=== PATIENT | male | born 1955 | race Hispanic/Latino ===

== ENCOUNTER 2017-05-06 06:43 | Emergency (ER) | payer MEDICARE | END 2017-05-06 08:34 | disposition home or self-care (01) | LOC: EDH 06:43 | DX: M79.2 Neuralgia and neuritis, unspecified (principal); F11.20 Opioid dependence, uncomplicated; J45.909 Unspecified asthma, uncomplicated; Z88.6 Allergy status to analgesic agent; Z88.8 Allergy status to other drugs, medicaments and biological substances; Z98.890 Other specified postprocedural states ==

== ENCOUNTER → 2019-12-18 | Outpatient (CLI) | payer OTHER | END | disposition home or self-care (01) | LOC: RAH 12:52 | PROVIDERS: ATTEND Family Medicine | DX: M47.22 Other spondylosis with radiculopathy, cervical region (principal); M48.02 Spinal stenosis, cervical region; M27.40 Unspecified cyst of jaw | CPT/HCPCS: 72141 ==

== ENCOUNTER → 2020-03-11 | Outpatient (CLI) | payer OTHER | END | disposition home or self-care (01) | LOC: RAH 14:47 | PROVIDERS: ATTEND Family Medicine | DX: M87.9 Osteonecrosis, unspecified (principal) | CPT/HCPCS: 73221 ==

== ENCOUNTER 2021-10-18 11:59 | Emergency (ER) | payer OTHER ==
[~2021-10-18] VITALS: Ht 160 cm; Wt 77.1 kg
[2021-10-18 12:22] LABS: BASOPHILS % (AUTO) 0.1 % (0.0-5.0); HEMATOCRIT 43.4 % (42-54); LYMPHOCYTES % (AUTO) 4.9 % (21.0-51.0); MEAN CORPUSCULAR HGB CONC 33.9 g/dL (32.0-36.0); MEAN CORPUSCULAR VOLUME 94.6 fL (79-99); MONOCYTES % (AUTO) 4.4 % (3.0-13.0); NEUTROPHILS % (AUTO) 90.1 % (40.0-77.0); PLATELET COUNT (AUTO) 321 K/uL (130-400); RED BLOOD CELL COUNT(AUTO) 4.59 MIL/uL (4.50-6.20); RED CELL DISTRIBUTION WIDTH 12.2 % (11.0-15.5); WHITE BLOOD COUNT (AUTO) 13.2 K/uL (4.8-10.8)
[2021-10-18 13:17] LABS: CREATININE 1.1 mg/dL (0.5-1.5); POTASSIUM 4.3 mmol/L (3.5-5.1)
[2021-10-18 13:24] LABS: ALBUMIN 4.1 g/dL (3.5-5.0); BILIRUBIN,TOTAL 0.4 mg/dL (0.2-1.0)
[2021-10-18] MEDS ORDERED: ACETAMINOPHEN WITH CODEINE 1 TAB TAB PO ONE (13:30)
[2021-10-18] MEDS ORDERED: ACET-2079 PO (14:20)
[2021-10-18 15:05] VITALS: BP 146/80
== END 2021-10-18 14:58 | disposition home or self-care (01) ==
LOC: EDH 11:59
DX: S22.32XA Fracture of one rib, left side, initial encounter for closed fracture (principal); J45.909 Unspecified asthma, uncomplicated; Z98.890 Other specified postprocedural states; Z88.6 Allergy status to analgesic agent; Z88.8 Allergy status to other drugs, medicaments and biological substances; W22.8XXA Striking against or struck by other objects, initial encounter; Y93.89 Activity, other specified; Y92.89 Other specified places as the place of occurrence of the external cause; Y99.8 Other external cause status
CPT/HCPCS: 36415; 71045; 71250; 80053; 84484; 85025; 93005

== ENCOUNTER 2021-11-29 07:20 | Observation (INO) | payer OTHER ==
[2021-11-23 11:25] LABS: BASOPHILS % (AUTO) 0.7 % (0.0-5.0); EOSINOPHILS % (AUTO) 2.3 % (0.0-8.0); HEMATOCRIT 43.6 % (42-54); LYMPHOCYTES % (AUTO) 15.3 % (21.0-51.0); MEAN CORPUSCULAR HEMOGLOBIN 31.6 pg (27.0-33.0); MEAN CORPUSCULAR HGB CONC 32.8 g/dL (32.0-36.0); MEAN CORPUSCULAR VOLUME 96.5 fL (79-99); MONOCYTES % (AUTO) 11.8 % (3.0-13.0); NEUTROPHILS % (AUTO) 69.5 % (40.0-77.0); PLATELET COUNT (AUTO) 288 K/uL (130-400); RED BLOOD CELL COUNT(AUTO) 4.52 MIL/uL (4.50-6.20); RED CELL DISTRIBUTION WIDTH 12.2 % (11.0-15.5); WHITE BLOOD COUNT (AUTO) 8.3 K/uL (4.8-10.8)
[2021-11-23 11:35] LABS: POTASSIUM 4.4 mmol/L (3.5-5.1)
[2021-11-23 13:01] LABS: INR 0.93 (0.85-1.15); PROTHROMBIN TIME 9.8 SEC (9.6-11.6)
[2021-11-28 11:09] VITALS: BP 130/79
[~2021-11-29] VITALS: Ht 160 cm; Wt 80.7 kg
[2021-11-29] VITALS (22 sets, daily range): BP systolic 118–174; BP diastolic 65–88
[~2021-11-29 07:20] MED LIST: AEC81 PO; ALLO100T PO; BUDE10.2 IH; DICL20GE TP; DONE10TA43 PO; DULO60CA64 PO; HYDR-4068 PO; LACTATED RINGERS 1000ML 1,000 ML IV SCH; MEMA10TA55 PO; ROSU10TA28 PO; TAMS-1 PO; TIOT18CA3 IH; TRANEXAMIC ACID 1000MG/10ML IV SCH
[2021-11-29] MEDS ORDERED: CEFAZOLIN SODIUM 1 GM VIAL ONE (08:34)
[2021-11-29] MEDS: HYDROCODONE/ACETAMINOPHEN 10/325 MG TAB PO SCH (10:37)
[2021-11-29] MEDS ORDERED: HYDROCODONE/ACETAMINOPHEN 10/325 MG TAB ONE (10:40)
[2021-11-29] MEDS ORDERED: TRANEXAMIC ACID 1000MG/10ML ONE (13:50)
[2021-11-29] MEDS ORDERED: LIDOCAINE PF 100MG/5ML (2%) SYRINGE 5ML ONE (13:52)
[2021-11-29] MEDS ORDERED: PROPOFOL 10 MG/ML 20ML VIAL IV ONE (13:53)
[2021-11-29] MEDS ORDERED: MIDAZOLAM HCL 1 MG/ML 2ML VIAL ONE (13:53)
[2021-11-29] MEDS ORDERED: SUCCINYLCHOLINE 200MG/10ML SYR ONE (13:53)
[2021-11-29] MEDS ORDERED: SUCCINYLCHOLINE CHLORIDE 20 MG/ML 10 ML VIAL ONE (13:53)
[2021-11-29] MEDS ORDERED: DEXAMETHASONE SOD PHOSPHATE 10MG/ML 1ML VIAL ONE ×2 (13:53→14:50)
[2021-11-29] MEDS ORDERED: ONDANSETRON 4MG INJ ONE (13:53)
[2021-11-29] MEDS ORDERED: GLYCOPYRROLATE 1 MG/5 ML SYRINGE ONE (13:53)
[2021-11-29] MEDS ORDERED: NEOSTIGMINE 5MG/5ML SYR IV ONE (13:53)
[2021-11-29] MEDS ORDERED: ROCURONIUM 10MG/1ML SYR 10 MG/ML ML ONE ×2 (13:54→15:56)
[2021-11-29] MEDS ORDERED: FENTANYL CITRATE PF 50 MCG/1 ML 2ML VIAL ONE ×2 (13:54→17:47)
[2021-11-29] MEDS ORDERED: ROPIVACAINE 0.5% 5MG/ML 30ML IJ ONE (14:04)
[2021-11-29] MEDS ORDERED: HYDROCODONE/ACETAMINOPHEN 5/325 MG TAB PO PRN (15:30)
[2021-11-29] MEDS ORDERED: ONDANSETRON 4MG INJ IVP PRN (15:30)
[2021-11-29] MEDS ORDERED: PHENYLEPHRINE HCL 10 MG/ML 1ML VIAL IV ONE (15:54)
[2021-11-29] MEDS ORDERED: ALBUTEROL 0.083% 2.5 MG/3 ML INH IH PRN (16:00)
[2021-11-29] MEDS ORDERED: MEPERIDINE-PF 25 MG/ML SYG ONE (17:36)
[2021-11-29] MEDS: DONEPEZIL HCL 5 MG TAB PO SCH (20:58)
[2021-11-29] MEDS: FAMOTIDINE 20MG TAB PO SCH (20:58)
[2021-11-29] MEDS: MEMANTINE HCL 5 MG TABLET PO SCH (20:58)
[2021-11-29] MEDS: ALLOPURINOL 100 MG TABLET PO SCH (20:59)
[2021-11-29] MEDS: ASPIRIN 81 MG EC TAB PO SCH (20:59)
[2021-11-29] MEDS: ACETAMINOPHEN 500 MG TABLET PO SCH (21:04)
[2021-11-29] MEDS: 0.9%NACL 1000ML 1,000 ML IV SCH (21:05)
[2021-11-29] MEDS: CEFAZOLIN SODIUM 1 GM VIAL IVP SCH (21:05)
[2021-11-29] MEDS: MORPHINE 4 MG SYG IVP PRN (21:13)
[2021-11-30] MEDS: HYDROCODONE/ACETAMINOPHEN 10/325 MG TAB PO PRN ×4 (01:14→23:47)
[2021-11-30] MEDS: 0.9%NACL 1000ML 1,000 ML IV SCH ×2 (01:30→18:05)
[2021-11-30] MEDS: BUDESONIDE 0.5 MG/2 ML INH IH SCH ×3 (02:25→17:02)
[2021-11-30] MEDS: CEFAZOLIN SODIUM 1 GM VIAL IVP SCH (04:13)
[2021-11-30] MEDS: ACETAMINOPHEN 500 MG TABLET PO SCH ×4 (04:14→23:48)
[2021-11-30 05:14] VITALS: BP 115/70
[2021-11-30 05:24] LABS: HEMATOCRIT 36.8 % (42-54); MEAN CORPUSCULAR HEMOGLOBIN 31.8 pg (27.0-33.0); MEAN CORPUSCULAR HGB CONC 33.7 g/dL (32.0-36.0); MEAN CORPUSCULAR VOLUME 94.4 fL (79-99); RED BLOOD CELL COUNT(AUTO) 3.9 MIL/uL (4.50-6.20); RED CELL DISTRIBUTION WIDTH 12.3 % (11.0-15.5); WHITE BLOOD COUNT (AUTO) 11.9 K/uL (4.8-10.8)
[2021-11-30 05:30] LABS: CREATININE 1.4 mg/dL (0.5-1.5); POTASSIUM 3.4 mmol/L (3.5-5.1)
[2021-11-30] MEDS ORDERED: IPRATROPIUM 0.5 MG/2.5 ML INH IH ONE (06:34)
[2021-11-30] MEDS: MORPHINE 4 MG SYG IVP PRN ×3 (07:32→20:26)
[2021-11-30 08:00] VITALS: BP 126/79
[2021-11-30] MEDS ORDERED: POLYETHYLENE GLYCOL 3350 17 GM POWD.PACK PO SCH (09:00)
[2021-11-30] MEDS: MEMANTINE HCL 5 MG TABLET PO SCH ×2 (10:11→20:27)
[2021-11-30] MEDS: ASPIRIN 81 MG EC TAB PO SCH ×2 (10:11→20:27)
[2021-11-30] MEDS: FAMOTIDINE 20MG TAB PO SCH ×2 (10:12→20:26)
[2021-11-30] MEDS: DULOXETINE HCL 30 MG CAP PO SCH (10:14)
[2021-11-30] MEDS: TAMSULOSIN HCL 0.4 MG CAP.ER.24H PO SCH (10:14)
[2021-11-30] MEDS: HYDROCODONE/ACETAMINOPHEN 10/325 MG TAB PO SCH (10:37)
[2021-11-30] MEDS: IPRATROPIUM 0.5 MG/2.5 ML INH IH SCH ×2 (11:07→17:02)
[2021-11-30 11:33] VITALS: BP 119/67
[2021-11-30 16:00] VITALS: BP 131/62
[2021-11-30] MEDS ORDERED: KETOROLAC 30MG VIAL (30MG/ML) IVP ONE (16:00)
[2021-11-30] MEDS: CEPHALEXIN 500 MG CAPSULE PO SCH ×2 (17:32→19:19)
[2021-11-30] MEDS: ALLOPURINOL 100 MG TABLET PO SCH (20:26)
[2021-11-30] MEDS: DONEPEZIL HCL 5 MG TAB PO SCH (20:27)
[2021-11-30 20:55] VITALS: BP 139/61
[2021-11-30 23:52] VITALS: BP 114/72
[2021-12-01] MEDS: IPRATROPIUM 0.5 MG/2.5 ML INH IH SCH ×3 (01:07→11:13)
[2021-12-01] MEDS: MORPHINE 4 MG SYG IVP PRN (01:52)
[2021-12-01 03:51] VITALS: BP 131/68
[2021-12-01] MEDS: HYDROCODONE/ACETAMINOPHEN 10/325 MG TAB PO PRN ×2 (04:32→08:23)
[2021-12-01] MEDS: ACETAMINOPHEN 500 MG TABLET PO SCH (05:52)
[2021-12-01] MEDS: BUDESONIDE 0.5 MG/2 ML INH IH SCH (06:31)
[2021-12-01 07:30] VITALS: BP 146/64
[2021-12-01] MEDS: DULOXETINE HCL 30 MG CAP PO SCH (10:05)
[2021-12-01] MEDS: FAMOTIDINE 20MG TAB PO SCH (10:05)
[2021-12-01] MEDS: TAMSULOSIN HCL 0.4 MG CAP.ER.24H PO SCH (10:05)
[2021-12-01] MEDS: ASPIRIN 81 MG EC TAB PO SCH (10:05)
[2021-12-01] MEDS: MEMANTINE HCL 5 MG TABLET PO SCH (10:05)
[2021-12-01] MEDS: CEPHALEXIN 500 MG CAPSULE PO SCH (10:06)
[2021-12-01 11:00] VITALS: BP 131/70
[2021-12-02] MEDS ORDERED: BISACODYL 10 MG SUPP.RECT RC PRN (15:30)
== END 2021-12-01 12:30 | disposition home or self-care (01) ==
LOC: DAH 07:20 → 4AH 07:21 → DAH 07:21
PROVIDERS: ADMIT Orthopaedic Surgery; ATTEND Orthopaedic Surgery
DX: M19.012 Primary osteoarthritis, left shoulder (principal); M24.512 Contracture, left shoulder; Z79.899 Other long term (current) drug therapy; Z79.82 Long term (current) use of aspirin
CPT/HCPCS: 80048 ×2; 85025; 85610; 85730; 87426; 36415 ×2; 73030 ×2; 93005; 87641; 23472; 96374; 96375 ×2; 76942; 64415; 94640 ×9; 96376 ×2; 85027; 97161; 97039 ×2; 97530 ×3; 94664; 97116; A6260; G0378 ×37; J7030; C1776; J7120; J3010 ×2; J0690 ×3; J3490 ×2; J0330 ×2; J1100 ×2; J2710; J2001; J2250; J2704; J2405 ×2; J2270 ×5; J2175; J2795; J2370; A6223; A6219; A4649 ×5; A4930; C1713; A5120; A4215; A4223; A4222; A4221; A4663; J1885

== ENCOUNTER 2021-12-06 02:10 | Emergency (ER) | payer OTHER ==
[~2021-12-06] VITALS: Ht 160 cm; Wt 77.1 kg
[~2021-12-06 02:10] MED LIST changes: -LACTATED RINGERS 1000ML 1,000 ML IV SCH; -TRANEXAMIC ACID 1000MG/10ML IV SCH
[2021-12-06 02:56] VITALS: BP 136/78
== END 2021-12-06 03:24 | disposition left against medical advice (07) ==
LOC: EDH 02:10
DX: G89.18 Other acute postprocedural pain (principal); M25.512 Pain in left shoulder; Z53.21 Procedure and treatment not carried out due to patient leaving prior to being seen by health care provider

== ENCOUNTER 2024-10-30 10:28 | Emergency (ER) | payer OTHER ==
[~2024-10-30] VITALS: Ht 160 cm; Wt 77.1 kg
[~2024-10-30 10:28] MED LIST changes: -AEC81 PO; -BUDE10.2 IH; -DICL20GE TP; -DULO60CA64 PO; +MEMA10TA21 PO; -MEMA10TA55 PO; -ROSU10TA28 PO; +ROSU10TA72 PO; -TAMS-1 PO; +TAMS-55 PO; -TIOT18CA3 IH; +TRILOGY IH
--- NOTE | 2024-10-30 10:43 | ERN ---
ED Note History of Present Illness Stated Complaint: RT ARM NUMBNESS 2 WEEKS Chief Complaint: Upper Extremity Pain/Injury Time Seen by MD: 10:30 Time Seen by Midlevel: 10:33 Dictation: Mr. Portillo is a 69-year-old male with history of COPD, asthma, BPH, hypokalemia who presented to the emergency department this morning for evaluation of arm pain. He reports sharp anterior shoulder pain with right arm tingling x 2 weeks. He denies trauma. He has increased pain to shoulder and neck with movement of neck. He is s/p right shoulder replacement surgery 2 years ago. He states yesterday he noted a tender, firm, 2.0 cm area of swelling to lateral aspect of right forearm. There is no open wound, drainage, bruising, erythema or warmth. He denies fever, chills, shortness of breath, cough, chest pain, palpitations, edema, abdominal pain, nausea, vomiting, hematemesis, constipation, diarrhea, melena, hematochezia, dysuria, headache, dizziness, or focal weakness. Allergies: Coded Allergies: cyclobenzaprine (Unverified Allergy, Intermediate, 10/18/21) gabapentin (Unverified Allergy, Intermediate, 10/18/21) ibuprofen (Unverified Allergy, Intermediate, 10/18/21) tramadol (Unverified Allergy, Intermediate, 10/18/21) iodine (Unverified Allergy, Unknown, 10/18/21) Home Meds Reported Medications [Trilogy] No Conflict Check, 1 PUFF IH DAILY 09/06/22 Tamsulosin HCl (Flomax) 0.4 Mg Cap.er.24h, 0.4 MG PO AM, CAPSULE.DR 11/28/21 Rosuvastatin Calcium (Rosuvastatin Calcium) 10 Mg Tablet, 10 MG PO AM, TAB 11/28/21 Memantine HCl (Memantine HCl) 10 Mg Tablet, 10 MG PO BID, TAB 11/28/21 Donepezil HCl (Donepezil HCl) 10 Mg Tablet, 10 MG PO HS, TAB 11/28/21 Allopurinol (Allopurinol) 100 Mg Tablet, 100 MG PO HS, TAB 11/28/21 Hydrocodone/Acetaminophen (Hydrocodon-Acetaminophn 10-325) 1 Each Tablet, 1 EACH PO TID PRN for PAIN, TAB 11/28/21 Past Medical History Past Medical History: Asthma Additional Past Medical Hx: HERNIA Surgical History: Other Surgical History Other: LUMBAR FUSION, LEFT WRIST FUSION, LEFT SHOULDER REPLACEMENT PSYCH History: no pertinent psych hx Social History: Lives with family RN Note Reviewed/Agreed w/PFSH: Yes Review of System Dictation REVIEW OF SYSTEMS: CONSTITUTIONAL: Patient denies fevers, chills, sweats and weight changes. EYES: Patient denies any visual symptoms. EARS, NOSE, AND THROAT: No difficulties with hearing. No symptoms of rhinitis or sore throat. CARDIOVASCULAR: Patient denies chest pains, palpitations, orthopnea and paroxysmal nocturnal dyspnea. RESPIRATORY: No dyspnea on exertion, no wheezing or cough. GI: No nausea, vomiting, diarrhea, constipation, abdominal pain, hematochezia or melena. : No urinary hesitancy or dribbling. No nocturia or urinary frequency. No abnormal urethral discharge. MUSCULOSKELETAL: Reports pain to right anterior shoulder and lateral neck. He repots tingling to right arm/hand/fingers. NEUROLOGIC: No chronic headaches, no seizures. Reports "tingling" sensation to right arm/hand/fingers. PSYCHIATRIC: Patient denies problems with mood disturbance. No problems with anxiety. ENDOCRINE: No excessive urination or excessive thirst. DERMATOLOGIC: Patient denies any rashes or skin changes. Initial Vital Sign VS Vital Signs Date Time Temp Pulse Resp B/P (MAP) Pulse Ox O2 Delivery O2 Flow Rate FiO2 10/30/24 10:30 97.9 87 14 136/78 95 Room Air 0 10/30/24 12:34 21 Physical Exam Dictation Vital signs: Reviewed. Afebrile. Constitutional: No acute distress. Non-toxic appearing. Head/Face: Normocephalic, atraumatic. Eyes: Periorbital areas with no swelling, redness, or edema. Lids and lashes are normal. Conjunctival injection is absent. Sclera anicteric. Pupils equal, round, reactive to light. ENT: Pinnas intact and no signs of trauma or erythema. Ear canals clear and no discharge. TMs no erythema. No nasal discharge or bleeding noted. Oropharynx with no exudate, redness, swelling, masses, exudates, or evidence of obstruction. Uvula midline. Mucous membranes moist. Neck: Trachea midline, no masses palpated, and no cervical lymphadenopathy. No swelling. Supple, full range of motion. Chest/Axilla: No tenderness, no crepitus, no paradoxical movement, no retractions. Cardiovascular: Regular rate, regular rhythm, no murmur, no gallops. Symmetric pulses. No peripheral edema. Normotensive. Respiratory: Respirations even and unlabored. Lung sounds clear; no wheezes, rales or rhonchi. Room air spo2 95% Gastrointestinal: Inspection is normal. No distention is appreciated. Bowel sounds are normal. No mass or organomegaly . There is no tenderness. No rebound. No rigidity. No voluntary or involuntary guarding. No Rbanch's sign. Neurological: Normal speech, gross motor function intact, gross sensory function intact. No focal weakness/Paresthesia. Musculoskeletal/Extremities: All extremities have full range of motion. He has good color, warmth, movement and sensation to right fingers. Capillary refill brisk. Symmetric pulses. + Spurlings test. He has firm mass 2.0 cm to lateral aspect of right forearm. Nonfluctuant. No erythema or warmth. Integumentary: Intact. Skin is normal color, warm and dry. Cap refill less than 2 seconds. Results (Laboratory/Radiology) Laboratory/Radiology Laboratory Tests Test 10/30/24 10:51 White Blood Count 6.6 K/uL (4.8-10.8) Red Blood Count 4.78 MIL/uL (4.50-6.20) Hemoglobin 16.4 g/dL (14.0-18.0) Hematocrit 48.2 % (42-54) Mean Corpuscular Volume 100.8 fL (79-99) H Mean Corpuscular Hemoglobin 34.3 pg (27.0-33.0) H Mean Corpuscular Hemoglobin Concent 34.0 g/dL (32.0-36.0) Red Cell Distribution Width 12.3 % (11.0-15.5) Platelet Count 239 K/uL (130-400) Mean Platelet Volume 8.6 fL (7.5-10.5) Immature Granulocyte % (Auto) 0.5 % (0-1) Neutrophils (%) (Auto) 70.0 % (40.0-77.0) Lymphocytes (%) (Auto) 18.4 % (21.0-51.0) L Monocytes (%) (Auto) 8.5 % (3.0-13.0) Eosinophils (%) (Auto) 1.8 % (0.0-8.0) Basophils (%) (Auto) 0.8 % (0.0-5.0) Neutrophils # (Auto) 4.6 K/uL (1.8-7.7) Lymphocytes # (Auto) 1.2 K/uL (1.0-4.8) Monocytes # (Auto) 0.6 K/uL (0.1-1.0) Eosinophils # (Auto) 0.12 K/uL (0.00-0.70) Basophils # (Auto) 0.05 K/uL (0.00-0.20) Absolute Immature Granulocyte (auto 0.03 K/uL (0-1) Nucleated Red Blood Cells 0.0 % (0.0-0.19) Erythrocyte Sedimentation Rate 5 MM/HR (0-20) Sodium Level 139 mmol/L (136-145) Potassium Level 4.2 mmol/L (3.5-5.1) Chloride Level 101 mmol/L (101-111) Carbon Dioxide Level 31 mmol/L (21-32) Blood Urea Nitrogen 16 mg/dL (7-18) Creatinine 0.8 mg/dL (0.5-1.3) Glomerular Filtration Rate Calc 96 mL/min (>90) Random Glucose 107 mg/dL (70-105) H Total Calcium 9.8 mg/dL (8.5-10.1) Labs Reviewed?: Yes X-RAY Comment: PATIENT: SPENCER PORTILLO MR#: [id number] : 1955 SEX: M AGE: 69 LOCATION: [facility] ORDER 103 STATUS: REG REPORT#: [id number] SERVICE 103 REASON: right arm numbness/pain ORDERING PHYSICIAN: KENDALL STERLING NP PROCEDURE: CERV 4 5VW - CERV SPINE 4-5 VWS CERV SPINE 4-5 VWS REASON: right arm numbness/pain. COMPARISON: None TECHNIQUE: 7 images of cervical spine were obtained. FINDINGS: There is reversal of normal lordotic cervical curvature which may be related to muscle spasm or positioning. Disc space narrowing are seen at C4-5, C5-6 and C6-7 levels. There is anterior subluxation of C2 over C3 and C3 over C4. There are degenerative changes with spondylosis. IMPRESSION: DJD. No loss of vertebral height is seen. DICTATED BY: RADHA MINOR MD DATE: 10/30/241155 ELECTRONICALLY SIGNED BY: RADHA MINOR MD DATE: 10/30/24 1202 PATIENT: SPENCER PORTILLO MR#: [id number] : 1955 SEX: M AGE: 69 LOCATION: [facility] ORDER 1035 STATUS: REG ER [facility]OSPITAL REPORT#: [id number] SERVICE 1034 REASON: right arm numbness/pain ORDERING PHYSICIAN: KENDALL STERLING NP PROCEDURE: SHOL 2V RT - SHOULDER COMP 2+VWS RT SHOULDER COMP 2+VWS RT HISTORY: Right arm numbness COMPARISON: None TECHNIQUE: 2 images of right shoulder were obtained. FINDINGS: Total right shoulder arthroplasty changes are seen. There is no acute displaced fracture or dislocation. Degenerative changes are seen. IMPRESSION: 1. Findings as described above. ATIENT: SPENCER PORTILLO MR#: [id number] : 1955 SEX: M AGE: 69 LOCATION: [facility] ORDER 1043 STATUS: REG ER REPORT#: [id number] SERVICE 1040 REASON: pain and swelling right forearm ORDERING PHYSICIAN: KENDALL STERLING NP PROCEDURE: FORARMR - FOREARM 2VWS RT FOREARM 2VWS RT HISTORY: Pain COMPARISON: None TECHNIQUE: 2 images of right forearm were obtained. FINDINGS: There is no acute displaced fracture or dislocation. Degenerative changes are seen. IMPRESSION: 1. Findings as described above. DICTATED BY: RADHA MINOR MD DATE: 10/30/241154 ELECTRONICALLY SIGNED BY: RADHA MINOR MD DATE: 10/30/24 1200 ED Course ED Course Orders Procedure Category Date Status Time Cerv Spine 4-5 Vws RAD 10/30/24 Resulted 10:34 Shoulder Comp 2+Vws Rt RAD 10/30/24 Resulted 10:34 Forearm 2vws Rt RAD 10/30/24 Resulted 10:40 Cbc With Differential LAB 10/30/24 Complete 10:40 Basic Metabolic Panel LAB 10/30/24 Complete 10:40 Erythrocyte LAB 10/30/24 Complete Sedimentation Rate 10:40 Hydrocodone/Apap PHA 10/30/24 Complete 5/325 ([place] 5/325mg) 11:30 Current Medications Medications (Trade) Dose Ordered Sig/Bakari Route PRN Reason Start Time Stop Time Status Last Admin Dose Admin Acetaminophen/ Hydrocodone Bitart (NORco 5/325MG) 1 tab ONCE ONCE PO 10/30/24 11:30 10/30/24 11:31 DC 10/30/24 11:29 Vital Signs Date Time Temp Pulse Resp B/P (MAP) Pulse Ox O2 Delivery O2 Flow Rate FiO2 10/30/24 12:34 98.6 76 18 125/71 99 Room Air* 0 21 10/30/24 10:30 97.9 87 14 136/78 95 Room Air 0 Full ED course. Vital signs are stable; afebrile and normotensive with room air SpO2 95-99%. X-rays of the right shoulder, cervical spine, and right forearm unremarkable. No fracture or dislocations. DJD noted. He has good color, warmth, movement, and sensation of right fingers. Capillary refill is brisk. Radial/ulnar pulses palpable. Laboratory findings as noted below. No elevation of WBCs. H&H are stable. Glucose 107. ESR is not elevated. While in the ED he received dose [place] x1. He is advised that he will need to follow up with his PCP for further diagnostics and/or pain management. Medical Decision Making MDM MDM: Differential diagnosis: fracture forearm, shoulder fracture/dislodged hardware, spinal stenosis/fracture, cellulitis/infection, Rationale: Tests considered and ordered secondary to shared decision making include: LAB, x-ray Previous outside records reviewed: Old ER visits. Risk of complication and/or morbidity or mortality of patient management: None Medications-Per medication reconciliation Need for hospitalization: Patient does not meet criteria for hospitalization. Need for emergency major/minor surgery: No There are no social concerns with this patient. Prescription drug management: OTC Tylenol Prescriptions will include symptomatic care Patient's prior external medical records from other ER visits were reviewed by me as indicated. Prior testing and results from previous visits were reviewed. Prior tests were taken into account with medical decision making and resource utilization, independent historian/historians were used to obtain complete medical history. I independently interpreted the test that were performed, results were reviewed by me and considered findings on radiology if ordered. Medical management and examination interpretation discussions were had by me with other qualified healthcare professionals as indicated for the patient's care. DX & DISP Disposition: Discharge Departure Impression: Primary Impression: Arthritis, shoulder region Additional Impressions: Left forearm pain, Osteoarthritis Condition: Stable Additional Instructions: Rest. Ice or warm pack as needed for discomfort. May take [id number] Tylenol as needed for discomfort. You will need to follow up with your primary care physician for possible additional imaging, referral to physical therapy, and pain management. Return to the emergency department for any worsening of symptoms or concerns. Referrals: GIRMA WHITLOCK MD (PCP) Time of Disposition: 12:41 KENDALL STERLING NP Oct 30, 2024 10:43
[2024-10-30 10:58] LABS: BASOPHILS # (AUTO) 0.05 K/uL (0.00-0.20); BASOPHILS % (AUTO) 0.8 % (0.0-5.0); EOSINOPHILS # (AUTO) 0.12 K/uL (0.00-0.70); EOSINOPHILS % (AUTO) 1.8 % (0.0-8.0); HEMATOCRIT 48.2 % (42-54); IMMATURE GRANULOCYTE ABSOLUTE 0.03 K/uL (0-1); LYMPHOCYTES # (AUTO) 1.2 K/uL (1.0-4.8); LYMPHOCYTES % (AUTO) 18.4 % (21.0-51.0); MEAN CORPUSCULAR HEMOGLOBIN 34.3 pg (27.0-33.0); MEAN CORPUSCULAR VOLUME 100.8 fL (79-99); MONOCYTES # (AUTO) 0.6 K/uL (0.1-1.0); MONOCYTES % (AUTO) 8.5 % (3.0-13.0); NEUTROPHILS # (AUTO) 4.6 K/uL (1.8-7.7); PLATELET COUNT (AUTO) 239 K/uL (130-400); RED BLOOD CELL COUNT(AUTO) 4.78 MIL/uL (4.50-6.20); RED CELL DISTRIBUTION WIDTH 12.3 % (11.0-15.5); WHITE BLOOD COUNT (AUTO) 6.6 K/uL (4.8-10.8)
[2024-10-30 11:04] LABS: CREATININE 0.8 mg/dL (0.5-1.3); POTASSIUM 4.2 mmol/L (3.5-5.1)
[2024-10-30] MEDS: HYDROcodone/APAP 5/325 1 TAB TABLET PO ONE (11:29)
--- NOTE | 2024-10-30 12:00 | HMCIMG ---
FOREARM 2VWS RT HISTORY: Pain COMPARISON: None TECHNIQUE: 2 images of right forearm were obtained. FINDINGS: There is no acute displaced fracture or dislocation. Degenerative changes are seen. IMPRESSION: 1. Findings as described above.
--- NOTE | 2024-10-30 12:01 | HMCIMG ---
SHOULDER COMP 2+VWS RT HISTORY: Right arm numbness COMPARISON: None TECHNIQUE: 2 images of right shoulder were obtained. FINDINGS: Total right shoulder arthroplasty changes are seen. There is no acute displaced fracture or dislocation. Degenerative changes are seen. IMPRESSION: 1. Findings as described above.
--- NOTE | 2024-10-30 12:02 | HMCIMG ---
CERV SPINE 4-5 VWS REASON: right arm numbness/pain. COMPARISON: None TECHNIQUE: 7 images of cervical spine were obtained. FINDINGS: There is reversal of normal lordotic cervical curvature which may be related to muscle spasm or positioning. Disc space narrowing are seen at C4-5, C5-6 and C6-7 levels. There is anterior subluxation of C2 over C3 and C3 over C4. There are degenerative changes with spondylosis. IMPRESSION: DJD. No loss of vertebral height is seen.
[2024-10-30 12:04] LABS: ERYTHROCYTE SEDIMENTATION RATE 5 MM/HR (0-20)
[2024-10-30 12:34] VITALS: BP 125/71; PULSE 76; RESP 18; TEMP 98.6; O2SAT 99
== END 2024-10-30 13:15 | disposition home or self-care (01) ==
LOC: EDH 10:28
DX: M19.011 Primary osteoarthritis, right shoulder (principal); M79.632 Pain in left forearm; J45.909 Unspecified asthma, uncomplicated; Z88.5 Allergy status to narcotic agent; Z88.6 Allergy status to analgesic agent; Z88.8 Allergy status to other drugs, medicaments and biological substances
CPT/HCPCS: 36415; 72050; 73030; 73090; 80048; 85025; 85651; 99284